=== PATIENT | female | born 1945 | race Caucasian/White ===

== ENCOUNTER 2016-12-18 21:19 | Emergency (ER) | payer MEDICARE, BC ==
[2016-12-18] MEDS ORDERED: Take Home: Nitrofurantoin Monohydrate/Macrocrystalline 100 MG, 2 Cap Pack PO ONE (22:04)
[2016-12-18] MEDS ORDERED: Take Home: Phenazopyridine 95 MG Tab, 4 Tab Pack ONE (22:04)
--- NOTE | 2016-12-19 02:56 | EDM.PDOC ---
ED HPI RENAL/ - General Chief Complaint: Genitourinary Problem Stated Complaint: Hematuria, frequency and burning urination Time Seen by Provider: 12/18/16 21:35 Source of Information: Reports: Patient History Limitations: Reports: No limitations - History of Present Illness INITIAL COMMENTS - FREE TEXT/NARRATIVE: Patient states that she has been experiencing dysuria and gross hematuria for the past 24 hours. Patient states that she has never had a previous episode of acute cystitis in the past. She states that she is not experiencing any flank pain. Denies any fever chills. No nodular vomiting or diarrhea. Patient states that she's not been experiencing any chest pain or shortness of breath. Her primary complaint is that of a burning and pressure to her lower abdomen and presence of gross hematuria with occasional blood clots. Symptom Onset Date: 12/18/16 Symptom Onset Time: 08:00 Timing/Duration: Reports: Hour(s): Location: Reports: periumbilical Quality: Reports: ache, cramping Severity: mild Worsens with: Reports: urinating Context: Reports: recent surgery, other Associated Symptoms: Reports: no other symptoms - Related Data Allergies/ADRs: Allergies Allergy/AdvReac Type Severity Reaction Status Date / Time Penicillins Allergy Other Verified 12/18/16 21:48 Sulfa (Sulfonamide Allergy Rash Verified 12/18/16 21:48 Antibiotics) Home Meds: Home Meds Calcium Carbonate [Calcium] 500 mg PO DAILY 02/04/15 [History] Cholecalciferol (Vitamin D3) [Vitamin D] 1,000 unit PO DAILY 02/04/15 [History] Fish Oil/Ada-3 Fatty Acids [Fish Oil] 1 each PO DAILY 02/04/15 [History] Glucosamine HCl [Glucosamine] 1,500 mg PO DAILY 02/04/15 [History] Multivitamin [Multi-Vitamin Daily] 1 each PO DAILY 02/04/15 [History] Aspirin [Ecotrin] 81 mg PO DAILY 12/18/16 [History] Past Medical History - Past Health History Medical/Surgical History: Denies Medical/Surgical History Social & Family History - Tobacco Use Smoking Status *Q: Never Smoker Second Hand Smoke Exposure: No - Alcohol Use Days Per Week of Alcohol Use: 5 Number of Drinks Per Day: 1 Total Drinks Per Week: 5 - Recreational Drug Use Recreational Drug Use: No ED ROS GENERAL - Review of Systems Review Of Systems: See Below Constitutional: Reports: no symptoms HEENT: Reports: No symptoms Respiratory: Reports: No Symptoms Cardiovascular: Reports: No symptoms : Reports: no symptoms, dysuria, flank pain, pain Musculoskeletal: Reports: no symptoms Free text/narrative/comment: Denies any fever, chills, weakness, back pain, abdominal pain, ED EXAM, RENAL/ - Physical Exam Exam: See Below Text/Narrative:: Lungs clear to auscultation. Heart regular rate and rhythm. Abdomen soft and nontender. She has no CVA tenderness. Course - Vital Signs Text/Narrative:: Patient was started on Macrobid 100 mg by mouth twice a day for 10 days. Pyridium 100 mg 3 times daily as needed for bladder pain. Consume plenty of water. Last Recorded V/S: Last Vital Signs Temp 37.1 C 12/18/16 21:25 Pulse 87 12/18/16 21:25 Resp 16 12/18/16 21:25 BP 141/96 H 12/18/16 21:25 Pulse Ox 99 12/18/16 21:25 - Orders/Labs/Meds Labs: Laboratory Tests 12/18/16 Range/Units 21:22 Urine Color Red H (YELLOW) Urine Appearance Turbid H (CLEAR) Urine pH 8.5 H (5.0-8.0) Ur Specific [place] 1.015 Urine Protein >=300 H (NEGATIVE) mg/dL Urine Glucose (UA) Negative (NEGATIVE) mg/dL Urine Ketones 15 H (NEGATIVE) mg/dL Urine Occult Blood Large H (NEGATIVE) Urine Nitrite Positive H (NEGATIVE) Urine Bilirubin Large H (NEGATIVE) Urine Urobilinogen 1.0 (0.2) EU/dL Ur Leukocyte Esterase Large H (NEGATIVE) Urine RBC Packed (NOT SEEN) /HPF Urine Red Cell Clumps Present Urine WBC 0-5 (NOT SEEN) /HPF Ur Squamous Epith Cells Not seen (NEGATIVE) /HPF Urine Bacteria Rare (NEGATIVE) /HPF Urine Mucus Not seen (NEGATIVE) /LPF Meds: Medications Discontinued Medications Generic Name Dose Route Start Last Admin Trade Name Freq PRN Reason Stop Dose Admin Nitrofurantoin Macrocrystals 1 packet 12/18/16 22:04 12/18/16 22:20 Take Home: Nitrofur [place]/Ma 100 Mg, 2 Pack PO 12/18/16 22:05 1 packet ONETIME ONE Administration Phenazopyridine HCl 1 packet 12/18/16 22:04 12/18/16 22:20 Take Home: Phenazopyridine, 4 Tab Pack .XX 12/18/16 22:05 1 packet ONETIME ONE Administration Departure - Departure Time of Disposition: 21:25 Disposition: Home, Self-Care 01 Condition: good Clinical Impression: UTI, Urinary tract infectious disease Instructions: Urinary Tract Infection, Adult Referrals: Lucero Banda MD [Primary Care Provider] - Forms: ED Department Discharge Additional Instructions: Macrobid 100mg twice daily for 10 days Pyridium three times daily for bladder discomfort. Continue to drink plenty of water. Follow-up in clinic in 10-14 days for recheck, sooner if not gradually improving.
[2016-12-19 04:39] VITALS: BP 120/84
== END 2016-12-18 22:25 | disposition home or self-care (01) ==
LOC: VM.ED 21:19
DX: N39.0 Urinary tract infection, site not specified (principal); Z88.2 Allergy status to sulfonamides; Z79.82 Long term (current) use of aspirin; Z79.899 Other long term (current) drug therapy
CPT/HCPCS: 81001; 99283; A9270

== ENCOUNTER 2020-08-22 09:35 | Emergency (ER) | payer MEDICARE, BC ==
[2020-08-22] MEDS ORDERED: Sodium Chloride 0.9% 10 ML Syringe FLUSH PRN (10:18)
--- NOTE | 2020-08-22 10:26 | EDM.PDOC ---
ED HPI GENERAL MEDICAL PROBLEM - General Chief Complaint: General Stated Complaint: CHEST PAIN Time Seen by Provider: 08/22/20 09:40 Source of Information: Reports: Patient History Limitations: Reports: No Limitations - History of Present Illness INITIAL COMMENTS - FREE TEXT/NARRATIVE: Patient comes in the emergency department with complaints of chest discomfort/pain. Patient states that it started approximately 730 this morning she was reading the newspaper and she felt a sudden chest pressure with heaviness radiating to both arms. She denies any shortness of breath, dizz iness, nausea, diaphoresis but states that the significant amount of pressure and heaviness on both of her upper extremities made her nervous. Patient states after presenting to the emergency department the discomfort is not as significant but it is still present. Patient states when she is resting the discomfort is not as significant however she tries to move that the pain is elicited more. She denies any shortness of breath, dizziness, numbness, tingling, diaphoresis, nausea, vomiting, abdominal pain, genitourinary concerns, or peripheral edema. Patient also denies any active COVID-19 symptoms. She states that she is been relatively healthy and has been trying to isolate as much as a possible. Onset: Sudden Location: Reports: Chest Quality: Reports: Other Severity: Moderate Improves with: Reports: Other Worsens with: Reports: Other Associated Symptoms: Reports: No Other Symptoms - Related Data Allergies Allergy/AdvReac Type Severity Reaction Status Date / Time Penicillins Allergy Other Verified 08/22/20 11:09 Sulfa (Sulfonamide Allergy Rash Verified 08/22/20 11:09 Antibiotics) Home Meds: Home Meds Calcium Carbonate [Calcium] 500 mg PO DAILY 02/04/15 [History] Cholecalciferol (Vitamin D3) [Vitamin D] 1,000 unit PO DAILY 02/04/15 [History] Fish Oil/[place]-3 Fatty Acids [Fish Oil] 1 each PO DAILY 02/04/15 [History] Glucosamine HCl [Glucosamine] 1,500 mg PO DAILY 02/04/15 [History] Multivitamin [Multi-Vitamin Daily] 1 each PO DAILY 02/04/15 [History] RX: Aspirin [Ecotrin EC] 81 mg PO DAILY 12/18/16 [History] Past Medical History - Past Health History Medical/Surgical History: Denies Medical/Surgical History ED ROS GENERAL - Review of Systems Review Of Systems: See Below Constitutional: Reports: No Symptoms HEENT: Reports: No Symptoms Respiratory: Reports: No Symptoms Cardiovascular: Reports: No Symptoms Endocrine: Reports: No Symptoms GI/Abdominal: Reports: No Symptoms : Reports: No Symptoms Musculoskeletal: Reports: No Symptoms Skin: Reports: No Symptoms Neurological: Reports: No Symptoms Psychiatric: Reports: No Symptoms Hematologic/Lymphatic: Reports: No Symptoms Immunologic: Reports: No Symptoms ED EXAM, GENERAL - Physical Exam Exam: See Below Exam Limited By: No Limitations General Appearance: Alert, WD/WN, No Apparent Distress Eye Exam: Bilateral Eye: EOMI, PERRL Head: Atraumatic, Normocephalic Neck: Normal Inspection, Supple, Non-Tender, Full Range of Motion Respiratory/Chest: No Respiratory Distress, Lungs Clear, Normal Breath Sounds, Chest Non-Tender Cardiovascular: Normal Peripheral Pulses, Regular Rate, Rhythm, No Edema GI/Abdominal: Normal Bowel Sounds, Soft, Non-Tender, No Organomegaly Back Exam: Normal Inspection, Full Range of Motion Extremities: Normal Inspection, Normal Range of Motion, Non-Tender, No Pedal Edema, Normal Capillary Refill Neurological: Alert, Oriented, CN II-XII Intact, Normal Gait Psychiatric: Normal Affect, Normal Mood Skin Exam: Warm, Dry, Intact, Normal Color Course - Vital Signs Last Recorded V/S: Last Vital Signs Temp 36.5 C 08/22/20 10:21 Pulse 78 08/22/20 11:12 Resp 16 08/22/20 11:12 BP 157/83 H 08/22/20 11:12 Pulse Ox 98 08/22/20 11:12 - Orders/Labs/Meds Orders: Active Orders 24 hr Category Date Time Status EKG Documentation Completion [RC] STAT Care 08/22/20 10:18 Active Sodium Chloride 0.9% [Saline Flush] Med 08/22/20 10:18 Active 10 ml FLUSH ASDIRECTED PRN Peripheral IV Insertion Adult [OM.PC] Stat Oth 08/22/20 10:18 Ordered Medication Orders Sodium Chloride (Saline Flush) 10 ml FLUSH ASDIRECTED PRN PRN Reason: Keep Vein Open Labs: Laboratory Tests 08/22/20 08/22/20 08/22/20 Range/Units 10:40 10:40 14:45 WBC 5.4 (4.0-10.0) x10^3/uL RBC 4.08 (4.00-5.50) x10^6/uL Hgb 12.5 D (12.0-16.0) g/dL Hct 37.4 (33.0-47.0) % MCV 91.7 D (78.0-93.0) fL MCH 30.6 (26.0-32.0) pg MCHC 33.4 (32.0-36.0) g/dL RDW Coeff of Ga 13.4 (10.0-15.0) % Plt Count 188 (130-400) x10^3/uL Neut % (Auto) 64.7 (50.0-80.0) % Lymph % (Auto) 21.5 L (25.0-50.0) % Rich % (Auto) 10.6 (2.0-11.0) % Eos % (Auto) 1.7 (0.0-4.0) % Baso % (Auto) 1.5 H (0.2-1.2) % Sodium 133 L (136-145) mmol/L Potassium 4.1 (3.5-5.1) mmol/L Chloride 98 (98-107) mmol/L Carbon Dioxide 31 (21-32) mmol/L Anion Gap 8.1 L (10-20) mmol/L BUN 11 (7-18) mg/dL Creatinine 0.8 (0.55-1.02) mg/dL Est Cr Clr Drug Dosing 51.03 mL/min Estimated GFR (MDRD) > 60 Glucose 97 (74-106) mg/dL Calcium 8.6 (8.5-10.1) mg/dL Corrected Calcium 9.08 (8.5-10.1) mg/dL Total Bilirubin 0.5 (0.2-1.0) mg/dL AST 21 (15-37) U/L ALT 24 (14-59) U/L Alkaline Phosphatase 85 (46-116) U/L Troponin I < 0.017 < 0.017 (<=0.056) ng/mL NT-Pro-B Natriuret Pep 49 (<=125) pg/mL Total Protein 6.9 (6.4-8.2) g/dL Albumin 3.4 (3.4-5.0) g/dL Globulin 3.5 Albumin/Globulin Ratio 0.97 Meds: Medications Generic Name Dose Route Start Last Admin Trade Name Tonja PRN Reason Stop Dose Admin Sodium Chloride 10 ml 08/22/20 10:18 Saline Flush FLUSH ASDIRECTED PRN Keep Vein Open Discontinued Medications Generic Name Dose Route Start Last Admin Trade Name Tonja PRN Reason Stop Dose Admin Aspirin 324 mg 08/22/20 10:56 08/22/20 11:08 Aspirin PO 08/22/20 10:57 324 mg ONETIME ONE Administration - Re-Assessments/Exams Free Text/Narrative Re-Assessment/Exam: 08/22/20 15:29 Pt VSS She states that she feels much better has not had any worsening symptoms since arrival to the emergency department. Patient is not willing to be admitted for further observation or any further monitoring of her cardiac enzymes. Patient is instructed and advised regarding her current symptoms and if they do return or worsen to present to the emergency department or contact 911 immediately. Patient states she understands this. Patient is alert oriented and ambulatory without assistance upon discharge Departure - Departure Time of Disposition: 14:45 Disposition: Home, Self-Care 01 Condition: Good Clinical Impression: Atypical chest pain - Discharge Information *PRESCRIPTION DRUG MONITORING PROGRAM REVIEWED*: Not Applicable *COPY OF PRESCRIPTION DRUG MONITORING REPORT IN PATIENT KOLBY: Not Applicable Instructions: Nonspecific Chest Pain, Adult Referrals: Lucero Banda MD [Primary Care Provider] - Forms: ED Department Discharge Additional Instructions: 1. rest 2. increase your water intake 3. Continue all at home medications 4. Activity and diet as tolerated 5. Can take over the counter Tylenol for any pain or discomfort 6. Follow up with PCP if symptoms continue, return, or progress 7. Call with any questions or concerns Sepsis Event Note (ED) - Focused Exam Vital Signs: Vital Signs Temp Pulse Resp BP Pulse Ox 08/22/20 11:12 78 16 157/83 H 98 08/22/20 10:21 36.5 C 70 16 167/86 H 98 - My Orders Last 24 Hours: My Active Orders 08/22/20 10:18 EKG Documentation Completion [RC] STAT Sodium Chloride 0.9% [Saline Flush] 10 ml FLUSH ASDIRECTED PRN Peripheral IV Insertion Adult [OM.PC] Stat - Assessment/Plan Last 24 Hours: My Active Orders 08/22/20 10:18 EKG Documentation Completion [RC] STAT Sodium Chloride 0.9% [Saline Flush] 10 ml FLUSH ASDIRECTED PRN Peripheral IV Insertion Adult [OM.PC] Stat Assessment:: 1. arm heaviness 2. chest discomfort Plan: 1. Labs completed in the ER. Results reviewed with the patient 2. IV initiated in the emergency department 3. IV fluids provided 4. Chest xray completed in ER. Results reviewed with the patient 5. ASA 324mg chewable was given to the patient 6. EKG was completed in ER. Results reviewed with the patient 7. Patient and nursing staff was updated regarding the plan of care 8. Patient is willing to have her troponin redrawn in 4 8. Education provided the patient regarding activity, diet, rest, [id number] medication modalities, and follow-up care was provided 9. Patient and family are agreeable to the above plan of care 10. All questions and concerns were addressed with the patient and family prior to discharge
[2020-08-22] MEDS ORDERED: Aspirin 81 MG Tab.Chew PO ONE (10:56)
--- NOTE | 2020-08-22 11:09 | CR ---
[id number] RAD/RAD Chest PA or AP 1V EXAM: RAD Chest PA or AP 1V INDICATION: CHEST PRESSURE. COMPARISON: None. DISCUSSION: Cardiomediastinal silhouette is normal in size and contour. No infiltrate, effusion, pneumothorax, or edema. Pulmonary hyperinflation. IMPRESSION: No acute cardiopulmonary abnormality. Sabas Romero DO 08/22/20 1111 Thank you for allowing us to participate in the care of your patient.
[2020-08-22 11:23] LABS: CHLORIDE,CL 98 mmol/L (98-107); SODIUM,NA 133 mmol/L (136-145)
[2020-08-22 11:38] LABS: ANION GAP 8.1 mmol/L (10-20)
[2020-08-22 18:57] VITALS: BP 157/83; PULSE 78
== END 2020-08-22 15:34 | disposition home or self-care (01) ==
LOC: VM.ED 09:35
DX: R07.89 Other chest pain (principal); Z88.0 Allergy status to penicillin; Z88.2 Allergy status to sulfonamides
CPT/HCPCS: 36415; 71045; 80053; 83880; 84484; 85025; 93005; 99284; 99285; A9270